=== PATIENT | male | born 1975 ===

== ENCOUNTER 2019-01-31 22:30 | Emergency (ER) | payer BC ==
[2019-01-31 22:58] LABS: ABS Eosinophils 0.3 10^3/ul (0-0.6); ABS Lymphocytes 2.3 10^3/ul (1.0-4.8); ABS Monocytes 0.8 10^3/ul (0-0.8); ABS Neutrophils 3.7 10^3/ul (1.5-7.7); Eosinophil % 4.2 %; Hematocrit 44 % (42-52); Hemoglobin 15.1 g/dL (14.0-18.0); Lymphocyte % 32.3 %; Mean Corpuscular HGB Conc 34 g/dL (31-36); Mean Corpuscular Hemoglobin 29 pg (27-31); Mean Corpuscular Volume 85 fL (80-94); Mean Platelet Volume 8.2 fL (7.4-10.4); Nucleated Red Blood Cells % 0.1; Platelet Count 289 10^3/uL (150-450); Red Blood Count 5.24 10^6 /uL (4.18-5.48); Red Cell Distribution Width 13 % (10.5-15); White Blood Count 7.1 10^3/uL (3.5-10.8)
[2019-01-31 23:04] LABS: INR 0.91 (0.82-1.09)
[2019-01-31 23:27] LABS: Albumin 4.4 g/dL (3.2-5.2); Albumin/Globulin Ratio 1.6 (1-3); BUN/Creatinine Ratio 18.3 (8-20); Calcium 9.6 mg/dL (8.6-10.3); EGFR Non-African American 69.4 (>60); Globulin 2.8 g/dL (2-4); Potassium 4.3 mmol/L (3.5-5.0); Total Bilirubin 0.5 mg/dL (0.2-1.0); Total Protein 7.2 g/dL (6.4-8.9)
--- NOTE | 2019-02-01 00:50 | ED ---
HPI Chest Pain - HPI Summary HPI Summary: Pt is a 43 y/o M presenting to the ED with a chief complaint of chest pain. He first got home from work around 1730 and couldnt eat dinner because he felt very full. He laid down and fell asleep for about 30 minutes. When he woke up, he noticed his pillow was covered in sweat and he didnt feel right, which he thought was heartburn or stress. He reports chest discomfort, feeling woozy, and nauseous. He also notes some dysuria. He is a former smoker and there are cardiac issues in his paternal family hx. - History of Current Complaint Chief Complaint: EDChestPainROMI Time Seen by Provider: 01/31/19 23:55 Hx Obtained From: Patient Onset/Duration: Started Hours Ago, Still Present Timing: Constant, Lasting Hours Initial Severity: Mild Current Severity: Moderate Pain Intensity: 6 Pain Scale Used: 0-10 Numeric Chest Pain Location: Diffuse Chest Pain Radiates: No Character: Other: - discomfort Aggravating Factor(s): Nothing Alleviating Factor(s): Nothing Associated Signs and Symptoms: Positive: Chest Pain, Diaphoresis, Nausea, Other : - dysuria - Allergy/Home Medications Allergies/Adverse Reactions: Allergies Allergy/AdvReac Type Severity Reaction Status Date / Time No Known Allergies Allergy Verified 01/31/19 22:37 PMH/Surg Hx/FS Hx/Imm Hx Previously Healthy: Yes Endocrine/Hematology History: Denies: Hx Diabetes Cardiovascular History: Reports: Hx Hypertension - not controlled by medication Denies: Hx Pacemaker/ICD Musculoskeletal History: Denies: Hx Rheumatoid Arthritis, Hx Osteoporosis Sensory History: Denies: Hx Hearing Aid Psychiatric History: Denies: Hx Panic Disorder - Surgical History Surgery Procedure, Year, and Place: LASIK EYE SURGERY Infectious Disease History: No Infectious Disease History: Denies: Traveled Outside the [place] in Last 30 Days - Family History Known Family History: Positive: Cardiac Disease - paternal - Social History Alcohol Use: Weekly Hx Substance Use: Yes Substance Use Type: Reports: Marijuana Hx Tobacco Use: Yes Smoking Status (MU): Former Smoker Review of Systems Positive: Skin Diaphoresis Positive: Chest Pain Positive: Nausea Positive: dysuria All Other Systems Reviewed And Are Negative: Yes Physical Exam - Summary Physical Exam Summary: Appearance: Well-appearing, Well-nourished, lying in bed comfortably Skin: Warm, dry, no obvious rash Eyes: sclera anicteric, no conjunctival pallor ENT: mucous membranes moist, pharynx appears normal Neck: Supple, nontender Respiratory: Clear to auscultation, no signs of respiratory distress Cardiovascular: Normal S1, S2. No murmurs. Normal distal pulses in tibial and radial bilaterally. Abdomen: Soft, nontender, normal active bowel sounds present Musculoskeletal: Normal, Strength/ROM Intact Neurological: A&Ox3, awake and alert, mentation is normal, speech is fluent and appropriate Psychiatric: affect is normal, does not appear anxious or depressed Triage Information Reviewed: Yes Vital Signs On Initial Exam: Initial Vitals Temp Pulse Resp BP Pulse Ox 97.5 F 67 16 176/119 100 01/31/19 22:36 01/31/19 22:36 01/31/19 22:36 01/31/19 22:36 01/31/19 22:36 Vital Signs Reviewed: Yes Diagnostics - Vital Signs Vital Signs Temp Pulse Resp BP Pulse Ox 02/01/19 00:13 60 21 99 02/01/19 00:12 64 17 98 01/31/19 22:36 97.5 F 67 16 176/119 100 - Laboratory Lab Results: Lab Results 01/31/19 01/31/19 01/31/19 Range/Units 22:52 22:52 22:52 WBC 7.1 (3.5-10.8) 10^3/uL RBC 5.24 (4.18-5.48) 10^6 /uL Hgb 15.1 (14.0-18.0) g/dL Hct 44 (42-52) % MCV 85 (80-94) fL MCH 29 (27-31) pg MCHC 34 (31-36) g/dL RDW 13 (10.5-15) % Plt Count 289 (150-450) 10^3/uL MPV 8.2 (7.4-10.4) fL Neut % (Auto) 52.2 % Lymph % (Auto) 32.3 % [place] % (Auto) 10.7 % Eos % (Auto) 4.2 % Baso % (Auto) 0.6 % Absolute Neuts (auto) 3.7 (1.5-7.7) 10^3/ul Absolute Lymphs (auto) 2.3 (1.0-4.8) 10^3/ul Absolute Monos (auto) 0.8 (0-0.8) 10^3/ul Absolute Eos (auto) 0.3 (0-0.6) 10^3/ul Absolute Basos (auto) 0.0 (0-0.2) 10^3/ul Absolute Nucleated RBC 0.0 10^3/ul Nucleated RBC % 0.1 INR (Anticoag Therapy) 0.91 (0.82-1.09) Sodium 138 (135-145) mmol/L Potassium 4.3 (3.5-5.0) mmol/L Chloride 104 (101-111) mmol/L Carbon Dioxide 28 (22-32) mmol/L Anion Gap 6 (2-11) mmol/L BUN 21 (6-24) mg/dL Creatinine 1.15 (0.67-1.17) mg/dL Est GFR ( Amer) 84.0 (>60) Est GFR (Non-Af Amer) 69.4 (>60) BUN/Creatinine Ratio 18.3 (8-20) Glucose 106 H (70-100) mg/dL Calcium 9.6 (8.6-10.3) mg/dL Total Bilirubin 0.50 (0.2-1.0) mg/dL AST 25 (13-39) U/L ALT 36 (7-52) U/L Alkaline Phosphatase 76 (34-104) U/L Troponin I 0.00 (<0.04) ng/mL Total Protein 7.2 (6.4-8.9) g/dL Albumin 4.4 (3.2-5.2) g/dL Globulin 2.8 (2-4) g/dL Albumin/Globulin Ratio 1.6 (1-3) 02/01/ Range/Units 00:17 WBC (3.5-10.8) 10^3/uL RBC (4.18-5.48) 10^6 /uL Hgb (14.0-18.0) g/dL Hct (42-52) % MCV (80-94) fL MCH (27-31) pg MCHC (31-36) g/dL RDW (10.5-15) % Plt Count (150-450) 10^3/uL MPV (7.4-10.4) fL Neut % (Auto) % Lymph % (Auto) % [place] % (Auto) % Eos % (Auto) % Baso % (Auto) % Absolute Neuts (auto) (1.5-7.7) 10^3/ul Absolute Lymphs (auto) (1.0-4.8) 10^3/ul Absolute Monos (auto) (0-0.8) 10^3/ul Absolute Eos (auto) (0-0.6) 10^3/ul Absolute Basos (auto) (0-0.2) 10^3/ul Absolute Nucleated RBC 10^3/ul Nucleated RBC % INR (Anticoag Therapy) (0.82-1.09) Sodium (135-145) mmol/L Potassium (3.5-5.0) mmol/L Chloride (101-111) mmol/L Carbon Dioxide (22-32) mmol/L Anion Gap (2-11) mmol/L BUN (6-24) mg/dL Creatinine (0.67-1.17) mg/dL Est GFR ( Amer) (>60) Est GFR (Non-Af Amer) (>60) BUN/Creatinine Ratio (8-20) Glucose (70-100) mg/dL Calcium (8.6-10.3) mg/dL Total Bilirubin (0.2-1.0) mg/dL AST (13-39) U/L ALT (7-52) U/L Alkaline Phosphatase (34-104) U/L Troponin I 0.00 (<0.04) ng/mL Total Protein (6.4-8.9) g/dL Albumin (3.2-5.2) g/dL Globulin (2-4) g/dL Albumin/Globulin Ratio (1-3) Result Diagrams: 01/31/19 22:52 01/31/19 22:52 Lab Statement: Any lab studies that have been ordered have been reviewed, and results considered in the medical decision making process. - EKG 2232 Cardiac Rate: NL - 64bpm EKG Rhythm: Sinus Rhythm ST Segment: Normal Ectopy: None Summary of EKG Findings: EKG at 3 shows NSR at 64bpm with no STEMI. Chest Pain Course/Dx - Course Course Of Treatment: Pt is a 43 y/o M presenting to the ED with a chief complaint of chest pain. He woke up from a nap after work with diaphoresis, nausea, chest discomfort, and feeling woozy. He also notes some dysuria. He is a former smoker and there are cardiac issues in his paternal family hx. Pt's labwork is WNL. EKG at 2233 shows NSR at 64bpm with no STEMI. He will be d/c' ed with a dx of chest pain. He is stable and agreeable with this plan. - Diagnoses Provider Diagnoses: Chest pain Discharge - Sign-Out/Discharge Documenting (check all that apply): Patient Departure Patient Received Moderate/Deep Sedation with Procedure: No - Discharge Plan Condition: Good Disposition: HOME Patient Education Materials: Chest Pain (ED) Referrals: Care [facility] [Outside] Additional Instructions: We did not find any heart problems tonight, but you may need further testing to diagnose your problem. Contact your primary doctor, or if you cannot find one contact the [facility] for assistance. - Billing Disposition and Condition Condition: GOOD Disposition: Home - Attestation Statements Document Initiated by Miriamibe: Yes Documenting Scribe: Tiera Del Cid Provider For Whom Medardo is Documenting (Include Credential): Henok Osorio MD. Scribe Attestation: ITiera, alfonsoed for Henok Osorio MD. on 02/05/19 at 0406. Scribe Documentation Reviewed: Yes Provider Attestation: The documentation as recorded by the scribeTiera accurately reflects the service I personally performed and the decisions made by me, Henok Osorio MD. Status of Scribe Document: Viewed
[2019-02-01 00:52] LABS: Urine Appearance Clear; Urine Bacteria Absent (Absent); Urine Bilirubin Negative (Negative); Urine Blood Negative (Negative); Urine Color Yellow; Urine Glucose Negative (Negative); Urine Ketones Negative (Negative); Urine Nitrite Negative (Negative); Urine Protein Negative (Negative); Urine Red Blood Cell Absent (Absent); Urine Specific Gravity 1.026 (1.010-1.030); Urine Squamous Epithelial Cell Present (Absent); Urine Urobilinogen Negative (Negative); Urine White Blood Cell Absent (Absent)
[2019-02-01 02:32] VITALS: BP 146/104
== END 2019-02-01 02:39 | disposition home or self-care (01) ==
LOC: ED 22:30
DX: R07.9 Chest pain, unspecified (principal); Z87.891 Personal history of nicotine dependence; I10 Essential (primary) hypertension
CPT/HCPCS: 36415; 80053; 81003; 81015; 84484; 85025; 85610; 87086; 93005; 99283